=== PATIENT | male | born 1995 | race Two or more races ===

== ENCOUNTER 2022-02-24 10:13 | Emergency (ER) | payer OTHER ==
[~2022-02-24] VITALS: Ht 177.8 cm; Wt 72.7 kg
[~2022-02-24 10:13] MED LIST: LIDOcaine 1% (10mg/ml)w/preservative inj. 20ml MDV ONE
[2022-02-24] MEDS ORDERED: ondansetron/PF 4mg/2ml inj IV ONE (11:05)
[2022-02-24] MEDS ORDERED: morphine 4 MG/ML inj SYRINge IV ONE (11:05)
--- NOTE | 2022-02-24 11:21 | NUR ---
PT MEDICATED BEFORE TAKING TO X RAY.
[2022-02-24] MEDS ORDERED: ceFAZolin 1000mg inj IV ONE (12:00)
[2022-02-24] MEDS ORDERED: ceFAZolin 2gm in dextrose, iso 2,000 MG/50 ML BAG IV ONE (12:35)
[2022-02-24] MEDS ORDERED: ceFAZolin 1gm IM kit IM ONE (12:35)
[2022-02-24] MEDS ORDERED: cefazolin/dext.iso 2gm/50ml IV ONE (12:43)
--- NOTE | 2022-02-24 13:00 | NUR ---
INFORMED PA LIANA PT IS STILL BLEEDING WAITING FOR GETTING SUTURED .
--- NOTE | 2022-02-24 13:18 | NUR ---
INFORMED PA THAT PT IS C/O PAIN AND FINGER LAC IS STILL BLEEDING .WOUND IS STILL OPEN TO AIR.
[2022-02-24] MEDS ORDERED: oxyCODONE SR 10mg (sust. release) tab PO ONE (13:20)
--- NOTE | 2022-02-24 13:55 | NUR ---
STORMY MCNULTY MADE AWARE PATIENT FINGER IS BLEEDING MODERATELY WITH TOWEL SATURATED AND FINGER DRIPPING BLOOD. PA TO ASSESS PATIENT.
[2022-02-24] MEDS ORDERED: OXYC-658 PO (16:40)
[2022-02-24] MEDS ORDERED: TETanus/Pertussis (Acell)/Diphther VAC/PF (Tdap-Adult) 0.5ml syringe IMVAC ONE (16:45)
[2022-02-24 16:51] VITALS: BP 131/79
== END 2022-02-24 16:56 | disposition home or self-care (01) ==
LOC: ER 10:15
DX: S62.623A Displaced fracture of middle phalanx of left middle finger, initial encounter for closed fracture (principal); S61.211A Laceration without foreign body of left index finger without damage to nail, initial encounter; M79.645 Pain in left finger(s); Z79.899 Other long term (current) drug therapy; Z20.3 Contact with and (suspected) exposure to rabies; W45.8XXA Other foreign body or object entering through skin, initial encounter; Y93.89 Activity, other specified; Y92.89 Other specified places as the place of occurrence of the external cause; Y99.8 Other external cause status
CPT/HCPCS: 12002; 73140; 90471; 90715; 96365; 96375; 99285; J0690; J2270; J2405; J3490